=== PATIENT | male | born 1955 | race Caucasian/White ===

== ENCOUNTER 2020-08-12 09:52 | Emergency (ER) | payer MEDICARE, OTHER ==
[~2020-08-12] VITALS: Ht 182.8 cm; Wt 90.7 kg
[~2020-08-12 09:52] MED LIST: AUGMENTIN 875875 MG PO; COUMADIN7.5 MG PO; ENOXAPARIN120 MG/0.1 INJECTION; FLOMAX0.4 MG PO; LEVAQUIN 500 M500 M2 PO; LIPITOR 20 MG T20 M1 PO; LOMOTIL TABLET1 EACH PO; MECLIZINE HCL25 M1 PO; MOBIC15 MG PO; NEXIUM40 MG PO; NIASPAN ER 101000 M1 PO; NORCO 5-325 TA1 EACH PO; PHENERGAN 25 MG25 M1 PO; PRINIVIL10 MG PO; RISPERDAL 1 MG T1 MG PO; RISPERDAL0.5 MG PO; ZOFRAN ODT4 MG PO
[2020-08-12 10:18] LABS: ABSOLUTE BASOPHILS 0.1 thou/uL (0.0-0.2); ABSOLUTE EOSINOPHILS 0.3 thou/uL (0.0-0.7); ABSOLUTE MONOCYTES 0.6 thou/uL (0.0-1.2); ABSOLUTE NEUTROPHILS 3.3 thou/uL (1.6-8.1); BASOPHILS 1.4 %; HEMATOCRIT 42.1 % (42.0-52.0); HEMOGLOBIN 13.8 gm/dL (14.0-18.0); LYMPHOCYTES 19.7 %; MCH 25.7 pg (26.0-34.0); MCHC 32.9 g/dL (28.0-37.0); MCV 78.1 fL (80.0-100.0); MPV 6.8 fl. (7.2-11.1); NUCLEATED RBCS 0 /100WBC; PLATELET COUNT* 235 thou/uL (150-400); POLYS 62.9 %; RBC 5.39 mil/uL (4.50-6.00); RDW-CV 16.3 % (10.5-14.5); WBC 5.2 thou/uL (4.0-11.0)
[2020-08-12 10:23] LABS: CALCIUM 8.9 mg/dL (8.5-10.1); POTASSIUM 4.2 mmol/L (3.5-5.1)
[2020-08-12 10:30] LABS: APTT 37.2 Seconds (25.0-31.3); INR 2.2; PROTIME 22.4 Seconds (9.20-11.50)
[2020-08-12 10:34] LABS: ALBUMIN 3.4 g/dL (3.4-5.0); MAGNESIUM 1.9 mg/dL (1.8-2.4); TOTAL BILIRUBIN 0.4 mg/dL (<0.1-1.0); TOTAL PROTEIN 6.7 g/dL (6.4-8.2)
[2020-08-12] MEDS ORDERED: AUGMENTIN 875-1 EACH PO (11:16)
[2020-08-12 13:00] VITALS: BP 146/90
--- NOTE | 2020-08-12 14:53 | EKG ---
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[facility] : 1955 Requested By: Shun Henry Order Number: [id number] MD: John Mederos Measurements Intervals [place] Rate: 65 P: 22 MS: 190 QRS: -6 QRSD: 94 T: 15 QT: 413 QTc: 430 Interpretive Statements Sinus rhythm Compared to ECG 09/29/2012 09:27:10 No significant changes Electronically Signed On 08-12-2020 14:53:54 CDT by John Mederos [email or web address] <ELECTRONICALLY SIGNED> By: John Mederos MD, [facility] 08/12/20 1453 0956 [id number] John Mederos MD, [facility] /EPI
== END 2020-08-12 13:00 | disposition home or self-care (01) ==
LOC: M.ERS 09:52
PROVIDERS: Emergency Medicine Emergency Medical Services
DX: R07.89 Other chest pain (principal); K21.9 Gastro-esophageal reflux disease without esophagitis; I10 Essential (primary) hypertension; Z90.89 Acquired absence of other organs; Z86.711 Personal history of pulmonary embolism; Z90.49 Acquired absence of other specified parts of digestive tract